=== PATIENT | male | born 1960 | race Caucasian/White ===

== ENCOUNTER 2020-02-04 14:33 | Emergency (ER) | payer SELFPAY ==
[~2020-02-04] VITALS: Ht 170.2 cm; Wt 77.1 kg
[2020-02-04 14:40] VITALS: BP 175/64
[2020-02-04] MEDS ORDERED: LIDOCAINE/EPI 1% 1:100000 20 ML VIAL INJ ONE (14:55)
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
[2020-02-04 15:30] LABS: BASOPHILS # (AUTO) 0.1 K/uL (0.00-0.22); BASOPHILS % (AUTO) 0.9 % (0.0-2.0); EOSINOPHILS # (AUTO) 0.1 K/uL (0-0.4); EOSINOPHILS % (AUTO) 0.7 % (0.0-4.0); HEMOGLOBIN 14.7 g/dL (12.0-18.0); LYMPHOCYTES % (AUTO) 17.5 % (20.5-51.1); MEAN CORPUSCULAR HEMOGLOBIN 29 pg (27-31); MEAN CORPUSCULAR HGB CONC 34 g/dL (33-37); MEAN CORPUSCULAR VOLUME 85.8 fL (80-94); MONOCYTES # (AUTO) 0.9 K/uL (0.8-1.0); MONOCYTES % (AUTO) 7.5 % (1.7-9.3); NEUTROPHILS # (AUTO) 8.4 K/uL (1.8-7.7); NEUTROPHILS % (AUTO) 73.4 % (42.2-75.2); PLATELET COUNT (AUTO) 296 K/uL (140-450); RED BLOOD CELL COUNT(AUTO) 5.12 MIL/uL (4.20-6.10); RED CELL DISTRIBUTION WIDTH 13.8 % (11.6-13.7); WHITE BLOOD COUNT (AUTO) 11.4 K/uL (4.8-10.8)
[2020-02-04 15:40] LABS: ANION GAP 11.7 (8-16); CARBON DIOXIDE 27.2 mmol/L (21-32); POTASSIUM 3.9 mmol/L (3.5-5.1)
--- NOTE | 2020-02-04 15:40 | NUR ---
PT TAKEN TO CT SCAN VIA WHEELCHAIR.
--- NOTE | 2020-02-04 15:43 | NUR ---
Angela beckwith in [facility] - 02/04/20 at 1549 by TEGAN PT TAKEN TO CT SCAN VIA REGIS.
--- NOTE | 2020-02-04 15:49 | NUR ---
PT HAS BEEN TAKEN BACK FROM CT SCAN VIA WHEELCHAIR.
--- NOTE | 2020-02-04 16:50 | NUR ---
DR. GALVAN IS IMPLEMENTING SUTURE PROCEDURE AT BEDSIDE.
[2020-02-04 17:15] VITALS: BP 168/78
== END 2020-02-04 17:15 | disposition home or self-care (01) ==
LOC: MED 14:33
DX: S02.2XXA Fracture of nasal bones, initial encounter for closed fracture (principal); S01.21XA Laceration without foreign body of nose, initial encounter; W22.8XXA Striking against or struck by other objects, initial encounter; Y93.89 Activity, other specified; Y92.89 Other specified places as the place of occurrence of the external cause; Y99.8 Other external cause status
CPT/HCPCS: 12001; 36415; 70450; 70486; 80048; 85025; 90471; 90715; 99285; J2001